=== PATIENT | female | born 1990 ===

== ENCOUNTER 2017-03-16 19:04 | Emergency (ER) | payer MEDICAID ==
[~2017-03-16] VITALS: Ht 165.1 cm; Wt 70.5 kg
[2017-03-16 19:17] VITALS: BP 132/83; PULSE 77; RESP 18; O2SAT 94
== END 2017-03-16 20:00 | disposition left against medical advice (07) ==
LOC: SED 19:04
DX: Z53.20 Procedure and treatment not carried out because of patient's decision for unspecified reasons (principal)